=== PATIENT | female | born 1965 | race Two or more races ===

== ENCOUNTER 2017-11-15 10:44 | Emergency (ER) | payer MEDICAID ==
[~2017-11-15] VITALS: Ht 157.5 cm; Wt 81.6 kg
[2017-11-15 11:04] VITALS: BP 164/93
== END 2017-11-15 14:27 | disposition left against medical advice (07) ==
LOC: ER 10:44
DX: R42 Dizziness and giddiness (principal); Z53.21 Procedure and treatment not carried out due to patient leaving prior to being seen by health care provider
CPT/HCPCS: 93005